=== PATIENT | male | born 1985 | race Caucasian/White ===

== ENCOUNTER 2016-08-05 02:56 | Emergency (ER) | payer OTHER ==
[2016-08-05 03:06] VITALS: BP 123/81
[2016-08-05] MEDS ORDERED: Sodium Chloride 0.9% 10 ML Syringe FLUSH PRN (03:23)
[2016-08-05] MEDS ORDERED: Ondansetron 4 MG/2 ML SDV IVPUSH ONE (03:23)
[2016-08-05] MEDS ORDERED: Famotidine 20 MG/2 ML SDV IVPUSH ONE (03:23)
[2016-08-05] MEDS: Sodium Chloride 0.9% 1,000 ML IV SCH ×2 (03:42→05:01)
[2016-08-05] MEDS ORDERED: Sodium Chloride 0.9% 1,000 ML IV SCH (04:15)
[2016-08-05] MEDS ORDERED: Levofloxacin/Dextrose 5%-Water 750 MG in Premix Bag 1 BAG IV ONE (04:51)
--- NOTE | 2016-08-05 04:52 | EDM.PDOC ---
ED HPI GI/ABDOMINAL - General Chief Complaint: Abdominal Pain Stated Complaint: VOMITING/DIARRHEA Time Seen by Provider: 08/05/16 03:13 Source of Information: Reports: Patient, RN notes reviewed - History of Present Illness INITIAL COMMENTS - FREE TEXT/NARRATIVE: 30-year-old male comes in with nausea vomiting diarrhea. His diarrhea actually started about 3-1/2 days ago. He's had intermittent nausea vomiting as well. The vomiting usually comes after attempts to eat. Even with drinking clear liquids he does get nauseated and that usually leads to subsequent diarrhea. The diarrhea has been severe, watery, frequent. He's had some chills but no fever. He states he did eat [employer] at a difference location while working about a day before becoming ill. He has had some intermittent abdominal cramping, no abnormal pain at this time. He is starting to feel weak, lightheaded and dizzy when standing. His mouth feels very dry. - Related Data Allergies/ADRs: Allergies Allergy/AdvReac Type Severity Reaction Status Date / Time No Known Allergies Allergy Verified 08/05/16 03:02 Home Meds: Home Meds Levofloxacin [Levaquin] 500 mg PO Q24H #5 tablet 08/05/16 [Rx] Ondansetron [Zofran ODT] 4 mg PO Q6H PRN #7 tab.dis 08/05/16 [Rx] Potassium Chloride 10 meq PO DAILY #20 tablet.er 08/05/16 [Rx] Past Medical History - Past Health History Medical/Surgical History: Denies Medical/Surgical History Social & Family History - Tobacco Use Smoking Status *Q: Unknown Ever Smoked ED ROS GENERAL - Review of Systems Review Of Systems: See Below Constitutional: Reports: chills. Denies: fever HEENT: Denies: Throat pain Respiratory: Denies: Shortness of Breath, Pleuritic Chest Pain Cardiovascular: Denies: Chest pain GI/Abdominal: Reports: Abdominal pain, Diarrhea, Nausea (Frequent repetitive), Vomiting Musculoskeletal: Reports: no symptoms Skin: Reports: no symptoms Neurological: Reports: Dizziness (Mild) ED EXAM, GI/ABD - Physical Exam Exam: See Below General Appearance: alert, mild distress Throat/Mouth: Other (Oral mucosa is very dry) Head: atraumatic. No: facial swelling Neck: supple, full range of motion Respiratory/Chest: no respiratory distress, lungs clear, normal breath sounds Cardiovascular: tachycardia GI/Abdominal: soft, tenderness (Very mild diffuse tenderness). No: guarding, rebound Extremities: normal inspection Neurological: alert, oriented, no motor/sensory deficits Skin Exam: Warm, Dry, Normal color Course - Vital Signs Last Recorded V/S: Last Vital Signs Temp 98.5 F 08/05/16 03:02 Pulse 106 H 08/05/16 03:02 Resp 18 08/05/16 03:02 BP 123/81 08/05/16 03:02 Pulse Ox 100 08/05/16 03:02 Orthostatic Blood Pressure [ 116/68 Standing] Orthostatic Blood Pressure [ 123/81 Supine] - Orders/Labs/Meds Orders: Active Orders 24 hr Category Date Time Status Peripheral IV Care [RC] . DIRECTED Care 08/05/16 03:23 Active Levofloxacin/Dextrose 5%-Water [Levaquin in D5W 750 MG/ Med 08/05/16 04:51 Active 150 ML] 750 mg Premix Bag 1 bag IV ONETIME Sodium Chloride 0.9% [Normal Saline] 1,000 ml Med 08/05/16 03:30 Active IV ONETIME Sodium Chloride 0.9% [Normal Saline] 1,000 ml Med 08/05/16 04:15 Active IV ONETIME Sodium Chloride 0.9% [Saline Flush] Med 08/05/16 03:23 Active 10 ml FLUSH ASDIRECTED PRN Peripheral IV Insertion Adult [OM.PC] Stat Oth 08/05/16 03:23 Ordered Medication Orders Sodium Chloride (Normal Saline) 1,000 mls @ 999 mls/hr IV ONETIME GRAHAM Last Admin: 08/05/16 05:01 Dose: 999 mls/hr Infusion: 08/05/16 04:43 Dose: 999 mls/hr Admin: 08/05/16 03:42 Dose: 999 mls/hr Sodium Chloride (Normal Saline) 1,000 mls @ 999 mls/hr IV ONETIME GRAHAM Levofloxacin/Dextrose 750 mg/ (Premix) 150 mls @ 100 mls/hr IV ONETIME ONE Stop: 08/05/16 06:20 Last Admin: 08/05/16 05:01 Dose: 100 mls/hr Sodium Chloride (Saline Flush) 10 ml FLUSH ASDIRECTED PRN PRN Reason: Keep Vein Open Last Admin: 08/05/16 03:40 Dose: 10 ml Labs: Laboratory Tests 08/05/16 08/05/16 Range/Units 03:35 03:35 WBC 3.64 L (4.23-9.07) K/mm3 RBC 4.59 L (4.63-6.08) M/mm3 Hgb 13.2 L (13.7-17.5) gm/L Hct 37.4 L (40.1-51.0) % MCV 81.5 (79.0-92.2) fl MCH 28.8 (25.7-32.2) pg MCHC 35.3 (32.2-35.5) g/dl RDW Std Deviation 36.9 (35.1-43.9) fL Plt Count 115 L (163-337) K/mm3 MPV 10.7 (9.4-12.3) fl Neut % (Auto) 79.4 H (34.0-67.9) % Lymph % (Auto) 14.6 L (21.8-53.1) % [place] % (Auto) 5.2 L (5.3-12.2) % Eos % (Auto) 0 L (0.8-7.0) Baso % (Auto) 0.3 (0.1-1.2) % Neut # (Auto) 2.89 (1.78-5.38) K/mm3 Lymph # (Auto) 0.53 L (1.32-3.57) K/mm3 [place] # (Auto) 0.19 L (0.30-0.82) K/mm3 Eos # (Auto) 0.00 L (0.04-0.54) K/mm3 Baso # (Auto) 0.01 (0.01-0.08) K/mm3 Sodium 136 (136-145) mEq/L Potassium 3.2 L (3.5-5.1) mEq/L Chloride 100 (98-107) mEq/L Carbon Dioxide 24 (21-32) mEq/L Anion Gap 15.2 H (5-15) BUN 15 (7-18) mg/dL Creatinine 1.4 H (0.7-1.3) mg/dL Est Cr Clr Drug Dosing 77.85 mL/min Estimated GFR (MDRD) 60 (>60) mL/min BUN/Creatinine Ratio 10.7 L (14-18) Glucose 124 H (74-106) mg/dL Calcium 8.3 L (8.5-10.1) mg/dL Total Bilirubin 1.4 H (0.2-1.0) mg/dL AST 98 H (15-37) U/L ALT 83 H (16-63) U/L Alkaline Phosphatase 109 (46-116) U/L Total Protein 7.4 (6.4-8.2) g/dl Albumin 3.6 (3.4-5.0) g/dl Globulin 3.8 gm/dL Albumin/Globulin Ratio 1.0 (1-2) Meds: Medications Generic Name Dose Route Start Last Admin Trade Name Freq PRN Reason Stop Dose Admin Sodium Chloride 1,000 mls @ 999 mls/hr 08/05/16 03:30 08/05/16 05:01 Normal Saline IV 999 mls/hr ONETIME GRAHAM Administration Sodium Chloride 1,000 mls @ 999 mls/hr 08/05/16 04:15 Normal Saline IV ONETIME GRAHAM Levofloxacin/Dextrose 750 mg/ 150 mls @ 100 mls/hr 08/05/16 04:51 08/05/16 05 :01 Premix IV 08/05/16 06:20 100 mls/hr ONETIME ONE Administration Sodium Chloride 10 ml 08/05/16 03:23 08/05/16 03:40 Saline Flush FLUSH 10 ml ASDIRECTED PRN Administration Keep Vein Open Discontinued Medications Generic Name Dose Route Start Last Admin Trade Name Freq PRN Reason Stop Dose Admin Famotidine 20 mg 08/05/16 03:23 08/05/16 03:44 Pepcid IVPUSH 08/05/16 03:24 20 mg ONETIME ONE Administration Ondansetron HCl 4 mg 08/05/16 03:23 08/05/16 03:42 Zofran IVPUSH 08/05/16 03:24 4 mg ONETIME ONE Administration - Re-Assessments/Exams Free Text/Narrative Re-Assessment/Exam: 08/05/16 05:53 labs are as documented. He is feeling tremendously better after IV fluid, IV Zofran. We're in the process of getting Levaquin 750 mg IV. As noted he did eats some type of topical is or burritos [employer] and a salad about one half day to a day before becoming ill. It is highly suspected he does have symptoms of foodborne illness. Discharge instructions as documented Departure - Departure Time of Disposition: 06:10 Disposition: Home, Self-Care 01 Condition: fair Clinical Impression: Gastroenteritis, Hypokalemia Prescriptions: Levofloxacin [Levaquin] 500 mg PO Q24H #5 tablet Ondansetron [Zofran ODT] 4 mg PO Q6H PRN #7 tab.dis PRN Reason: Nausea/Vomiting Potassium Chloride 10 meq PO DAILY #20 tablet.er Forms: ED Department Discharge Additional Instructions: Clear liquids until tomorrow morning, then very careful bland diet as tolerated. Zofran ODT if needed for further nausea or vomiting, begin probiotic and take that twice daily. Probiotic is available OTC. You've been given your dose of Levaquin antibiotic for today. Next dose will be tomorrow morning and then continue that daily until gone. A prescription has been provided for your mildly low potassium. Wait until your symptoms have completely resolved before beginning the potassium supplement. Bananas as well as other fruit and vegetables are an excellent source of potassium. Your low potassium may be contributing to the symptoms of leg achiness that you have been experiencing. Followup clinic if symptoms not continuing to resolve as expected, return to ED if symptoms worsening in any way - My Orders Last 24 Hours: My Active Orders 08/05/16 03:23 Peripheral IV Care [RC] . DIRECTED Sodium Chloride 0.9% [Saline Flush] 10 ml FLUSH ASDIRECTED PRN Peripheral IV Insertion Adult [OM.PC] Stat 08/05/16 03:30 Sodium Chloride 0.9% [Normal Saline] 1,000 ml IV ONETIME 08/05/16 04:15 Sodium Chloride 0.9% [Normal Saline] 1,000 ml IV ONETIME 08/05/16 04:51 Levofloxacin/Dextrose 5%-Water [Levaquin in D5W 750 MG/150 ML] 750 mg Premix Bag 1 bag IV ONETIME - Assessment/Plan Last 24 Hours: My Active Orders 08/05/16 03:23 Peripheral IV Care [RC] . DIRECTED Sodium Chloride 0.9% [Saline Flush] 10 ml FLUSH ASDIRECTED PRN Peripheral IV Insertion Adult [OM.PC] Stat 08/05/16 03:30 Sodium Chloride 0.9% [Normal Saline] 1,000 ml IV ONETIME 08/05/16 04:15 Sodium Chloride 0.9% [Normal Saline] 1,000 ml IV ONETIME 08/05/16 04:51 Levofloxacin/Dextrose 5%-Water [Levaquin in D5W 750 MG/150 ML] 750 mg Premix Bag 1 bag IV ONETIME
== END 2016-08-05 06:10 | disposition home or self-care (01) ==
LOC: JD.ED 02:56
DX: K52.9 Noninfective gastroenteritis and colitis, unspecified (principal); E87.6 Hypokalemia; Z79.899 Other long term (current) drug therapy
CPT/HCPCS: 36415; 80053; 85025; 96361; 96365; 96375; 99284; J1956; J2405; J7040; J7050